=== PATIENT | male | born 1960 | race African-American/Black ===

== ENCOUNTER 2016-11-02 21:52 | Inpatient (IN) | payer OTHER ==
[~2016-11-02] VITALS: Ht 190.5 cm; Wt 131.5 kg
[~2016-11-02 21:52] MED LIST: ADALAT CC 60 MG60 MG PO; CLARITIN,ALAVAR10 MG PO; COLACE100 MG PO; COZAAR50 MG PO; HYDROCHLOROTHIA25 MG PO; HYDROMORPHONE HC4 MG PO; LIPITOR10 MG PO; LIPITOR20 MG PO; LISINOPRIL40 MG PO; LYRICA150 MG PO; METFORMIN HCL500 M4 PO; MOBIC7.5 MG PO; NEXIUM20 MG PO; OXYCODONE-ACET1 EACH PO; PROCARDIA XL90 MG PO; PROTONIX20 MG PO; PROZAC20 MG PO
[2016-11-03] MEDS ORDERED: IRON325 M1 PO (06:00)
[2016-11-03] MEDS ORDERED: COLACE100 MG PO (06:01)
[2016-11-03 06:04] VITALS: BP 135/82
[2016-11-03 06:30] LABS: POINT-OF-CARE METER ID UU13113694
[2016-11-03 11:06] LABS: POINT-OF-CARE METER ID UU13113675
[2016-11-03 12:13] VITALS: BP 129/86
[2016-11-03 14:00] VITALS: BP 134/84
[2016-11-03 15:40] VITALS: BP 131/79
[2016-11-03 16:19] LABS: POINT-OF-CARE METER ID UU14174215
[2016-11-03 18:00] VITALS: BP 134/84
[2016-11-03 20:24] VITALS: BP 140/84
[2016-11-03 21:44] LABS: POINT-OF-CARE METER ID UU13113712
[2016-11-04 03:32] VITALS: BP 144/90
[2016-11-04 06:49] LABS: HEMATOCRIT 36.1 % (38.0-50.0); MCV 81.9 FL (86-99)
[2016-11-04 07:16] LABS: ANION GAP 12 MEQ/L (2-14); CHLORIDE 101 MEQ/L (99-109); GFR ESTIMATE (CALCULATED) > 59 mL/min/; GLUCOSE 141 mg/dL (70-99); POTASSIUM 3.8 MEQ/L (3.7-5.4); SAMPLE HEMOLYSIS CHECK 0; SAMPLE ICTERIC CHECK 0; SAMPLE LIPEMIA CHECK 0; SODIUM 136 MEQ/L (136-147); UREA NITROGEN (BUN) 20 mg/dL (9-23)
[2016-11-04 07:43] VITALS: BP 132/73
[2016-11-04 11:39] VITALS: BP 147/77
[2016-11-04 11:54] LABS: POINT-OF-CARE METER ID UU13113712
[2016-11-04 15:49] VITALS: BP 135/73
[2016-11-04 16:19] LABS: POINT-OF-CARE METER ID UU13113712
[2016-11-04 20:02] VITALS: BP 171/97
[2016-11-04 22:09] LABS: POINT-OF-CARE METER ID UU13113712
[2016-11-05 00:21] VITALS: BP 118/57
[2016-11-05 04:30] VITALS: BP 121/67
[2016-11-05 06:26] LABS: HEMATOCRIT 31.1 % (38.0-50.0); MCV 80.8 FL (86-99)
[2016-11-05 07:19] LABS: POINT-OF-CARE METER ID UU13113712
[2016-11-05 07:41] VITALS: BP 124/67
[2016-11-05] MEDS ORDERED: BENADRYL25 MG PO (10:31)
[2016-11-05] MEDS ORDERED: TYLENOL REGULA325 MG PO (10:34)
[2016-11-05] MEDS ORDERED: BISACODYL5 MG PO (10:34)
[2016-11-05] MEDS ORDERED: OXYCODONE HCL5 MG PO (10:35)
[2016-11-05] MEDS ORDERED: OXYCONTIN10 MG PO (10:35)
[2016-11-05] MEDS ORDERED: CELECOXIB200 MG PO (10:35)
[2016-11-05] MEDS ORDERED: ELIQUIS2.5 MG PO (10:35)
[2016-11-05 11:32] VITALS: BP 134/70
[2016-11-05 11:33] LABS: POINT-OF-CARE METER ID UU13113712
[2016-11-05 15:34] VITALS: BP 131/77
[2016-11-05 16:11] LABS: POINT-OF-CARE METER ID UU13113712
== END 2016-11-05 16:43 | DRG 462 ==
LOC: ENRESERV 21:52 → 2SOUTH 11-03 05:34 → 3WEST 11-03 05:34 → 2SOUTH 11-03 10:50 → 3WEST 11-03 11:48 → 2SOUTH 11-03 14:33 → 3WEST 11-05 16:43
PROVIDERS: Orthopaedic Surgery
DX: M17.0 Bilateral primary osteoarthritis of knee (principal); D62 Acute posthemorrhagic anemia; E11.9 Type 2 diabetes mellitus without complications; E66.9 Obesity, unspecified; G47.33 Obstructive sleep apnea (adult) (pediatric); I10 Essential (primary) hypertension; E78.00 Pure hypercholesterolemia, unspecified; E55.9 Vitamin D deficiency, unspecified; Z79.84 Long term (current) use of oral hypoglycemic drugs; Z68.37 Body mass index [BMI] 37.0-37.9, adult; Z83.3 Family history of diabetes mellitus; Z80.9 Family history of malignant neoplasm, unspecified
CPT/HCPCS: 80048; 82948; 85014; 85018; 94660; 97530 GO; 97530 GP; C1713; J0131; J0690; J1100; J1170; J1815; J1885; J2250; J2405; J2795; J7030; J7050; S0020

== ENCOUNTER → 2017-05-12 | Outpatient (CLI) | payer OTHER ==
[~2017-05-12] MED LIST changes: +BENADRYL25 MG PO; +BISACODYL5 MG PO; +CELECOXIB200 MG PO; +ELIQUIS2.5 MG PO; +IRON325 M1 PO; +OXYCODONE HCL5 MG PO; +OXYCONTIN10 MG PO; +TYLENOL REGULA325 MG PO
== END | disposition home or self-care (01) ==
LOC: CDC 08:21
DX: Z01.810 Encounter for preprocedural cardiovascular examination (principal); R26.2 Difficulty in walking, not elsewhere classified; M25.561 Pain in right knee; M25.562 Pain in left knee; M25.661 Stiffness of right knee, not elsewhere classified; M25.662 Stiffness of left knee, not elsewhere classified; M25.512 Pain in left shoulder; M25.511 Pain in right shoulder; M19.012 Primary osteoarthritis, left shoulder; M19.011 Primary osteoarthritis, right shoulder; M75.42 Impingement syndrome of left shoulder; M75.41 Impingement syndrome of right shoulder; Z96.653 Presence of artificial knee joint, bilateral; R94.31 Abnormal electrocardiogram [ECG] [EKG]
CPT/HCPCS: 93000